=== PATIENT | female | born 1955 | race Caucasian/White ===

== ENCOUNTER 2018-08-28 17:43 | Emergency (ER) | payer OTHER ==
[2018-08-28] MEDS ORDERED: KETOROLAC 60 MG/2 ML VIAL IM STA (18:16)
--- NOTE | 2018-08-28 18:20 | ED ---
General Adult HPI - General Chief complaint: Extremity Injury, Lower Stated complaint: Left Ankle Injury Time Seen by Provider: 08/28/18 18:06 Source: patient, family, RN notes reviewed Mode of arrival: ambulatory Limitations: no limitations - History of Present Illness Initial comments: Patient is a pleasant 63-year-old female presenting to the emergency Department with left ankle pain. Patient has had some swelling of her left ankle with the past 4-5 days. Patient did have ultrasound done showing no DVT. Patient then followed up with her primary care physician. Patient had x-rays and blood work done however results are pending. No history of similar symptoms previously. No redness. No warmth. No fevers. Patient was walking prior to arrival and felt a sudden pop. Patient has increased swelling of the left anterior ankle. Patient now also has discomfort. Discomfort is new since she felt a pop just prior to arrival. No calf pain or calf swelling. No discomfort or weakness near the Achilles region. No foot pain or foot swelling. Patient was started on steroids for this. - Related Data Previous Rx's Medication Instructions Recorded traMADol HCl [Ultram] 50 mg PO Q6H PRN #12 tab 08/28/18 Allergies Allergy/AdvReac Type Severity Reaction Status Date / Time morphine AdvReac Hallucinati Verified 08/28/18 17:53 ons Review of Systems ROS Statement: Those systems with pertinent positive or pertinent negative responses have been documented in the HPI. ROS Other: All systems not noted in ROS Statement are negative. Constitutional: Denies: fever Eyes: Denies: eye pain ENT: Denies: ear pain Respiratory: Denies: cough Cardiovascular: Denies: chest pain Endocrine: Denies: fatigue Gastrointestinal: Denies: abdominal pain Genitourinary: Denies: dysuria Musculoskeletal: Reports: joint swelling (Left anterior ankle). Denies: back pain Skin: Denies: rash Neurological: Denies: weakness Past Medical History Additional Past Medical History / Comment(s): pt has arrhythmias History of Any Multi-Drug Resistant Organisms: None Reported Past Surgical History: Cholecystectomy, Orthopedic Surgery Additional Past Surgical History / Comment(s): thrombectomy of LLE, R hammer toe Past Psychological History: No Psychological Hx Reported Smoking Status: Never smoker Past Alcohol Use History: Occasional Past Drug Use History: None Reported General Exam Limitations: no limitations General appearance: alert, in no apparent distress Head exam: Present: atraumatic Neck exam: Present: normal inspection Respiratory exam: Present: normal lung sounds bilaterally Cardiovascular Exam: Present: regular rate, normal rhythm Expanded Peripheral pulses: 2+: Posterior Tibialis (L), Dorsalis Pedis (L) Extremities exam: Absent: pedal edema, calf tenderness Left Ankle exam: Present: tenderness (Anterior only), swelling (Anterior with tenderness). Absent: erythema Foot/Toe exam: Present: normal inspection, full ROM. Absent: tenderness, swelling, abrasion Neurovascular tendon exam: Present: no vascular compromise. Absent: pulse deficit, abnormal cap refill, motor deficit (Patient does have discomfort with range of motion of the toes. Limited evaluation at the ankle secondary to discomfort swelling.), sensory deficit (Patient states some tingling however is able to feel light touch distally.), pallor Neurological exam: Present: alert Psychiatric exam: Present: normal affect, normal mood Skin exam: Present: normal color. Absent: rash Course Vital Signs 08/28/18 17:53 Temperature 98.2 F Pulse Rate 72 Respiratory 18 Rate Blood Pressure 167/89 O2 Sat by Pulse 99 Oximetry Procedures - Orthopedic Splinting/Casting Injury #1 Side: left Lower Extremity Injury Location: short leg, ankle Lower Extremity Immobilizer: posterior splint (Short leg splint) Medical Decision Making - Medical Decision Making Patient reevaluated and updated. Patient offered repeat ultrasound however refuses. Patient is felt to be extremely low suspicion secondary to symptoms isolated to the anterior left ankle. - Radiology Data Radiology results: report reviewed (X-ray left ankle shows no fracture. Calcaneal spurring.) Disposition Clinical Impression: Ankle injury Disposition: HOME SELF-CARE Condition: Stable Instructions: Ankle Sprain (ED) Additional Instructions: Please follow-up this week with orthopedics. If you are unable to see somebody at home please follow-up with number provided here. Return for increased pain, increased swelling, redness, fever, chest pain or difficulty breathing, worsening symptoms or any other concerns. No weightbearing on the left ankle. Prescription provided for crutches. [id number] Tylenol or Motrin as needed. Prescriptions: traMADol HCl [Ultram] 50 mg PO Q6H PRN #12 tab PRN Reason: Pain/Discomfort Is patient prescribed a controlled substance at d/c from ED?: Yes When asked, does pt state using other controlled substances?: No If prescribed controlled substance>3 days was MAPS reviewed?: Prescribed <3 Days If Rx opioid, was Start Talking consent form obtained?: Yes Referrals: Elizabeth Munson MD [Primary Care Provider] - 1-2 days Yuni Yuen DO [Doctor of Osteopathic Medicine] - 1-2 days Time of Disposition: 19:59
--- NOTE | 2018-08-28 18:50 | XR ---
EXAMINATION TYPE: XR ankle complete LT DATE OF EXAM: 08/28/2018 COMPARISON: NONE HISTORY: Ankle pain TECHNIQUE: 3 views FINDINGS: Ankle mortise is anatomic. I see no fracture nor dislocation. There is an Achilles calcanea l spur. There are no erosions. IMPRESSION: Calcaneal spurring. No fracture.
[2018-08-28 20:23] VITALS: BP 115/93; PULSE 71; RESP 19; TEMP 97.8
== END 2018-08-28 20:21 | disposition home or self-care (01) ==
LOC: EC 17:43
DX: S99.912A Unspecified injury of left ankle, initial encounter (principal); Z88.5 Allergy status to narcotic agent; X50.1XXA Overexertion from prolonged static or awkward postures, initial encounter; Y93.01 Activity, walking, marching and hiking
CPT/HCPCS: 73610; 99283; 29515; 96372; J1885